=== PATIENT | male | born 1985 | race Two or more races ===

== ENCOUNTER 2025-06-22 12:38 | Emergency (ER) | payer MEDICAID, OTHER ==
[~2025-06-22] VITALS: Ht 165.1 cm; Wt 97.9 kg
--- NOTE | 2025-06-22 14:06 | DVH ---
CLINICAL INDICATION: pain TECHNIQUE: 2 radiographic views of the right knee were obtained. Comparison: XY L KNEE 3V XRAY on DOS: 06/22/25 FINDINGS/IMPRESSION: There is no evidence of acute fracture or dislocation. The visualized joint space is well maintained. Trace right knee joint effusion. The alignment is anatomical. There is no radiopaque foreign body.
--- NOTE | 2025-06-22 14:08 | DVH ---
CLINICAL INDICATION: pain TECHNIQUE: 3 radiographic views of the left knee were obtained. Comparison: XY R KNEE 3V XRAY on DOS: 06/22/25 FINDINGS/IMPRESSION: There is no evidence of acute fracture or dislocation. The visualized joint space is well maintained. Small left knee joint effusion. The alignment is anatomical. There is no radiopaque foreign body.
--- NOTE | 2025-06-22 14:41 | ED.PDOC ---
Back pain HPI HPI Comments 39-year-old male presents to the ER with a chief complaint of bilateral knee pain. Patient reports on having a 7/10 bilateral sharp knee swelling and pain that comes and goes. Denies any other symptoms at this time. Able to bear weight on the leg Denies trauma to the knee or recent fall Denies skin color changes around the knee Denies masses around the knee Denies popping/locking/giving out of the knee Denies fever chills night sweats nausea vomiting Denies previous surgeries to the knee nor significant injury Chief Complaint: Lower Extremity Time Seen by MD: 14:35 Reviewed Notes: Nurses Notes, Medications, Allergies Allergies: Coded Allergies: NO KNOWN ALLERGIES (Unverified , 06/22/25) Home Meds Active Scripts Naproxen (Naproxen) 500 Mg Tab, 500 MG PO BIDPRN PRN for 10 Days, #20 TAB 0 Refills Prov:BRENTRADHA NP 06/22/25 Information Source: Patient Mode of Arrival: Ambulatory Timing: Came on: Suddenly Duration: Since onset Severity: Moderate Prehospital treatment: None Quality: Aching Onset: Spontaneous History of: None Associated signs and symptoms: None Past Medical History PAST MEDICAL HISTORY: Denies Surgical History: Denies all surgeries Family History Family History: Reviewed,noncontributory to illness, Unknown Social History Smoker: Non-Smoker Alcohol: Denies ETOH Use Drugs: Denies Drug Use Lives In: Home Constitutional: denies: chills, diaphoresis, fatigue, fever, malaise, sweats, weakness, others EENTM: denies: blurred vision, double vision, ear bleeding, ear discharge, ear drainage, ear pain, ear ringing, eye pain, eye redness, hearing loss, mouth pain, mouth swelling, nasal discharge, nose bleeding, nose congestion, nose p ain, photophobia, tearing, throat pain, throat swelling, voice changes, others Respiratory: denies: cough, hemoptysis, orthopnea, SOB at rest, shortness of breath, SOB with excertion, stridor, wheezing, others Cardiovascular: denies: chest pain, dizzy spells, diaphoresis, Dyspnea on exertion, edema, irregular heart beat, left arm pain, lightheadedness, palpitations, PND, syncope, others Gastrointestinal: denies: abdomen distended, abdominal pain, blood streaked bowels, constipated, diarrhea, dysphagia, difficulty swallowing, hematemesis, melena, nausea, poor appetite, poor fluid intake, rectal bleeding, rectal pain, vomiting, others Genitourinary: denies: burning, dysuria, flank pain, frequency, hematuria, incontinence, penile discharge, penile sore, pain, testicle pain, testicle swelling, urgency, others Neurological: denies: dizziness, fainting, headache, left sided numbness, left sided weakness, numbness, paresthesia, pre-existing deficit, right sided numbness, right sided weakness, seizure, speech problems, tingling, tremors, weakness, others Musculoskeletal: reports: others (Bilateral knee pain); denies: back pain, gout, joint pain, joint swelling, muscle pain, muscle stiffness, neck pain Integumetry: denies: bruises, change in color, change in hair/nails, dryness, laceration, lesions, lumps, rash, wounds, others Allergic/Immunocompromised: denies: Difficulty Healing, Frequent Infections, Hives, Itching, others Hematologic/Lymphatic: denies: anemia, blood clots, easy bleeding, easy bruising, swollen glands, others Endocrine: denies: excessive hunger, excessive sweating, excessive thirst, excessive urination, flushing, intolerance to cold, intolerance to heat, unexplained weight gain, unexplained weight loss, others Psychiatric: denies: anxiety, bipolar disorder, depression, hopeless, panic disorder, schizophrenia, sleepless, suicidal, others All Other Systems: Reviewed and Negative Physical Exam General Appearance: No Apparent Distress, Normal HEENT: Normal ENT Inspection, Pharynx Normal, TMs Normal Neck: Full Range of Motion, Non-Tender, Normal, Normal Inspection Respiratory: Chest Non-Tender, Lungs Clear, No Accessory Muscle Use, No Respiratory Distress, Normal Breath Sounds Cardiovascular: No Edema, No JVD, No Murmur, No Gallop, Normal Peripheral Pulses, Regular Rate/Rhythm Breast Exam: Deferred Gastrointestinal: No Organomegaly, Non Tender, No Pulsatile Mass, Normal Bowel Sounds, Soft Genitalia: Deferred Pelvic: Deferred Rectal: Deferred Extremities: No calf tenderness, Normal capillary refill, Normal inspection, Normal range of motion, Non-tender, No pedal edema Musculoskeletal : Apperance: Normal Neurologic: Alert, ecological risk assessor II-XII nml as Tested, No Motor Deficits, Normal Affect, Normal Mood, No Sensory Deficits Cerebellar Function: Normal Reflexes: Normal Skin: Dry, Normal Color, Warm Lymphatic: No Adenopathy Was a procedure done? Was a procedure done?: No Back Pain Differential Dx Differential Diagnosis: Other X-Ray, Labs, Meds, VS Vital Signs Date Time Temp Pulse Resp B/P (MAP) Pulse Ox O2 Delivery O2 Flow Rate FiO2 06/22/25 15:05 98.3 84 20 142/92 (109) 97 98.3 06/22/25 15:05 84 20 97 Room Air 06/22/25 12:42 98.1 82 24 148/99 98 98.1 X-Ray, Labs, Meds, VS Comment 39-year-old male presents to the ER with a chief complaint of bilateral knee pain. Patient arrives alert and oriented, ABC's intact, afebrile, vital signs stable, saturating well in room air Diagnostic imaging ordered by me and results interpreted by radiology : Bila teral knee x-ray Prescribed NSAIDs for the management of acute knee pain. Take ibuprofen p.o. 600 mg every 8 hours with food as needed for pain Recommend light walking under the sun for 30 minutes a day Avoiding running jogging high-impact activities Stretch as tolerated Ice 3x/day for 5 minutes Wear knee brace for stability as needed, elevate leg swelling aggravated On reevaluation, patient had symptomatic improvement. Patient is stable for discharge at this time. External notes reviewed. Test results and diagnostic imaging interpreted. All diagnostic findings, discharge care, education and instructions provided Follow-up with PCP in 2 to 3 days Patient verbalized understanding and agreed to treatment plan Vital signs stable, afebrile, no acute distress noted Patient ambulatory with strong steady gait Advised to return precautions for any new or worsening symptoms, return to ER i mmediately for re-evaluation Patient is aware that the purpose of this visit was for an acute medical emergency requiring emergent stabilization. Chronic conditions, including malignancies have not been ruled out. Patient is instructed to follow up with PCP as directed and discharge instructions for continued care and workup. If unable to arrange follow-up, patient is to return to the emergency department for reassessment. Patient (parent or legal guardian if applicable) was given verbal and written discharge instructions and acknowledges understanding. Additional MDM Review of External, Non-ED records: External records reviewed. Discussion with independent historian (EMS, family) history obtained from the patient/parents (if applicable) at bedside Chronic conditions affecting care: None Social determinants of health affecting care: None Consideration of admission (observation or admission): I considered escalation of care to admission for this patient, however given the reassuring workup, the patient is safe for outpatient management. Discussion with the Radiology: No Tests considered but not performed: Prescription medication considered but not given: 12 lead EKG interpretation: Time of 1ST Reevaluation: 15:05 Reevaluation 1ST: Unchanged Patient Education/Counseling: Diagnosis, Treatment, Prognosis Family Education/Counseling: No Family Present SEPSIS Sepsis Screen Date sepsis recognized/suspect: Jun 22, 2025 Time Sepsis recognized/suspect: 1244 Recent Procedure: No On Antibiotic Therapy: No Respiratory Rate >20: No Heart Rate >90: No Temp<36 C (96.8 F) or >38.3 C: No SBP <90 or MAP <65 mmHG: No New Acute Mental Status Change: No Is the patient on CPAP, BIPAP,: No Physician Orders L Knee 3v Xray (06/22/25 13:28) R Knee 3v Xray (06/22/25 13:28) Vital Signs Date Time Temp Pulse Resp B/P (MAP) Pulse Ox O2 Delivery O2 Flow Rate FiO2 06/22/25 15:05 98.3 84 20 142/92 (109) 97 98.3 06/22/25 15:05 84 20 97 Room Air 06/22/25 12:42 98.1 82 24 148/99 98 98.1 Departure 1 Departure Time of Disposition: 14:47 Impression: Primary Impression: Knee pain Qualified Codes: M25.561 - Pain in right knee; M25.562 - Pain in left knee Disposition: 01 HOME / SELF CARE / HOMELESS Condition: Stable e-Prescriptions Naproxen (Naproxen) 500 Mg Tab 500 MG PO BIDPRN PRN for 10 Days, #20 TAB 0 Refills Prov: RADHA KENNEDY NP 06/22/25 Critical Care Note Critical Care Time?: No Stability Stability form required: No Heart Score Heart Score: Heart Score Response (Comments) Value History N/A 0 EKG N/A 0 Age N/A 0 Risk Factors N/A 0 Troponin N/A 0 Total 0 I personally scribed for RADHA KENNEDY NP ([email or web address]) on 06/22/25 at 14:41. Electronically submitted by Merrill Gallardo ([email or web address]). RADHA KENNEDY NP Jun 22, 2025 14:41
[2025-06-22] MEDS ORDERED: NAPR-746 PO (14:48)
[2025-06-22 15:05] VITALS: BP 142/92; PULSE 84; RESP 20; TEMP 98.3; O2SAT 97
== END 2025-06-22 15:22 | disposition home or self-care (01) ==
LOC: ER 12:38
DX: M25.561 Pain in right knee (principal); M25.562 Pain in left knee
CPT/HCPCS: 73562